=== PATIENT | male | born 1950 | race Caucasian/White ===

== ENCOUNTER 2016-09-22 11:00 | Day surgery (SDC) | payer BC, MEDICARE ==
[~2016-09-22 11:00] MED LIST: Buffered Lidocaine 1% SYRIN* 3 ML/SYR SYRINGE INTRADERM ONE
[2016-09-22] MEDS ORDERED: fentaNYL* 50 MCG/ML 2 ML VIAL (100 MCG VIAL) ONE (13:41)
[2016-09-22] MEDS ORDERED: ZOSYN 3.375 GM ONE TIME DOSE-OVER 30 MINUTES IVPB (14:00)
[2016-09-22] MEDS ORDERED: EPHEDrine (Pressors)* 50 MG/ML VIAL ONE (14:17)
[2016-09-22] MEDS ORDERED: Succinylcholine* 20 MG/ML 10 ML VIAL ONE (14:17)
[2016-09-22] MEDS ORDERED: Lidocaine 2% PF * 5 ML VIAL ONE (14:17)
[2016-09-22] MEDS ORDERED: Propofol* 10 MG/ML 20 ML BTL IV PUSH ONE (14:17)
[2016-09-22 15:24] VITALS: BP 126/72
--- NOTE | 2016-09-22 15:48 | RAD ---
INDICATION: Biliary stones. COMPARISON: Correlation is made with a prior MRCP study from July 28, 2016. TECHNIQUE: An ERCP exam was performed by Dr. Monet. Multiple spot films of the right upper quadrant were obtained. Approximately 131.6 seconds of intermittent fluoroscopic guidance was provided during the exam. FINDINGS: The films demonstrate cannulization of the common bile duct and passage of a balloon catheter over a guidewire into the common bile duct with several passes to remove biliary calculi. IMPRESSION: ERCP CONTROL FILMS. CPT II Codes: 6045F
--- NOTE | 2016-09-23 02:22 | PRO ---
DATE: 09/22/16 [facility] REFERRING PHYSICIAN: Drs. Ravi Moreno, Robbi Hastings, Rickey Dee.* PROCEDURE: ERCP with common bile duct cannulation and balloon extraction of pigment stones. 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 He had a laparoscopic common duct exploration at the time of his original cholecystectomy and then a sphincterotomy in 1993. In May 1994, he had removal of pigment stones via ERCP. Recent MRCP suggested common duct stones. His 1994 ERCP suggested a long cystic duct remnant. Original sphincterotomy had been done with needle knife assistance in 1993. At this time, he has been feeling well. His first grandchild was born today. ENDOSCOPIST: Dr. Monet. ANESTHESIOLOGIST: Dr. Springer. FINDINGS: He is a slender man, sallow complected, in no overt distress. He was positioned on the table with a warmer in place. Pressure points appeared to be there. He was intubated. ERCP: Esophagus - easily entered. Mucosa normal . Stomach - generally appears normal with some wispy bleeding points in the fundus seen during withdrawal. The antrum appears normal. There is a fair amount of foam. Duodenum - the bulb had some erythema and appearance of swelling at the apex of the bulb, but the lower duodenum was readily entered. Papilla - a slip identified in the typical location. A sphincterotome was inserted, entering the common duct readily and a wire was placed deep in the liver. Initial injection showed some stone material in the distal duct. The duct was estimated at 13 mm proximally. An exchange is made for an extraction balloon 9 mm to 12 mm. It was inflated in the upper duct and brought through. The initial passage brought out a lot of cakey black material with some small stones part of it. More granular dark debris was brought through with a couple of other passes. The balloon at 12 mm was snug, but came through with mild steady tension. A guidewire became displaced and the guidewire was then reinserted with the sphincterotome again. The balloon was then reinserted and brought through and this delivered a triangular 9 to 10 mm stone. Further ingestion showed no filling defects. Air got into the duct, but seemed to demonstrate adequate drainage and a final sweep was done extracting the air. IMPRESSION: 1. Status post remote sphincterotomy. 2. Common bile duct stones - removed and bile drainage appears to be adequate and free. 3. Episodes of cholangitis - his course will be followed. [id number] #: [id number] MTDD
== END 2016-09-22 15:45 | disposition home or self-care (01) ==
LOC: OR 11:00
PROVIDERS: ATTEND Internal Medicine Gastroenterology
DX: K80.36 Calculus of bile duct with acute and chronic cholangitis without obstruction (principal); Z94.0 Kidney transplant status; K76.89 Other specified diseases of liver
CPT/HCPCS: 74328; 76001; J0330; J2543; J2704; J3010

== ENCOUNTER 2016-09-29 06:21 | Emergency (ER) | payer BC, MEDICARE ==
[2016-09-29] MEDS ORDERED: NS 0.9% 1000 ML* 1,000 ML IV SCH (07:30)
[2016-09-29] MEDS ORDERED: NS 0.9% 1000 ML* 1,000 ML IV ONE (07:30)
[2016-09-29 07:39] LABS: Hematocrit 40 % (42-52); Hemoglobin 13.2 g/dl (14.0-18.0); Mean Corpuscular HGB Conc 33 g/dl (31-36); Mean Corpuscular Hemoglobin 31 pg (27-31); Mean Corpuscular Volume 93 fL (80-94); Mean Platelet Volume 9 um3 (7.4-10.4); Red Blood Count 4.23 10^6/ul (4.0-5.4); Red Cell Distribution Width 14 % (10.5-15); White Blood Count 8.7 10^3/ul (3.5-10.8)
[2016-09-29 07:52] LABS: Albumin 3.4 g/dL (3.2-5.2); C Reactive Protein 8.29 mg/L (< 5.00); EGFR African American 95.9 (>60); EGFR Non-African American 74.5 (>60); Globulin 2.6 g/dL (2-4); Potassium 3.7 mmol/L (3.5-5.0); Total Bilirubin 1.2 mg/dL (0.2-1.0)
[2016-09-29 08:34] LABS: Urine Bilirubin Negative (Negative); Urine Glucose Negative (Negative); Urine Nitrite Negative (Negative)
--- NOTE | 2016-09-29 10:17 | RAD ---
CLINICAL HISTORY: The right lower quadrant pain COMPARISON: March 29, 2008 TECHNIQUE: Multiple contiguous axial CT scans were obtained of the abdomen and pelvis, without intravenous contrast enhancement. Coronal and sagittal multiplanar reformations are submitted for review. Oral contrast was not administered. FINDINGS: The study is limited by the lack of intravenous contrast. This limits evaluation of the solid organs and vasculature. LUNG BASES: The lung bases are clear. LIVER: Again noted are numerous cysts throughout the liver parenchyma consistent with history of polycystic kidney disease. BILE DUCTS: There is no intrahepatic or extrahepatic biliary dilatation. GALLBLADDER: The gallbladder is not visualized. Surgical clips are noted in the gallbladder fossa. PANCREAS: The pancreas is normal, without mass or ductal dilatation. SPLEEN: Normal in size and appearance. UPPER GI TRACT: Evaluation of the gastrointestinal tract is limited by incomplete gastric distention. The upper GI tract is unremarkable. SMALL BOWEL AND MESENTERY: The small bowel is normal in contour, course, and caliber. There is no obstruction or dilatation. COLON: The colon is normal in contour, course, caliber. There is no pericolonic inflammatory change. There is a tubular, vermiform, hollow viscus that is blind ending, and originates from the cecum, consistent with a normal appendix. There is no periappendiceal inflammatory change. This is best seen on axial images 53 through 63. ADRENALS: Normal bilaterally. KIDNEYS: Again noted are multiple renal parenchymal cysts throughout both kidneys, including simple and complicated cysts. Direct comparison is limited due to the number cysts; however the appearance is similar to the 2008 examination. There is an allograft within the left hemipelvis. There is pelviectasis. There is no appreciable nephrolithiasis. BLADDER: The bladder is smooth in contour. PELVIC ORGANS: The prostate gland is normal. The seminal vesicles are symmetric. AORTA: There is calcific atherosclerotic disease of the abdominal aorta and its branches, without aneurysmal dilatation IVC: Unremarkable LYMPH NODES: There is no lymphadenopathy by size criteria. ABDOMINAL WALL: There is no evidence for abdominal wall hernia. BONES AND SOFT TISSUES: There is a scoliotic curvature of the spine. Degenerative changes are noted OTHER: None IMPRESSION: 1. AGAIN NOTED ARE INNUMERABLE RENAL PARENCHYMAL AND HEPATIC PARENCHYMAL CYSTS CONSISTENT WITH THE HISTORY OF POLYCYSTIC KIDNEY DISEASE. 2. THE PATIENT IS STATUS POST RENAL ALLOGRAFT IN THE LEFT HEMIPELVIS. 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 THERE IS NO APPRECIABLE NEPHROLITHIASIS. 3. ATHEROSCLEROSIS.
--- NOTE | 2016-09-29 11:08 | ED ---
Demarcus Pittman Auryana, scribed for Reji Gaytan MD on 09/29/16 at 0735 . Abdominal Pain/Male - HPI Summary HPI Summary: 65 year old male presents with lower abdominal pain starting yesterday around 16 :00. Since then, the pain has become progressively worse, and is now localized to the RLQ. He reports that the pain is intermittent (currently 3/10) but with movement and turning over, the pain is much worse - characterized as sharp/ burning. He also has decreased appetite (starting this morning) but denies any fever, chills, burning with urination, diarrhea, or any blood in stool. PMHx is significant for hernia, renal transplant s/p PKD, cholecystectomy, and ERCP ( last week). - History of Current Complaint Chief Complaint: EDAbdPain Stated Complaint: LRQ PAIN Time Seen by Provider: 09/29/16 07:30 Hx Obtained From: Patient Onset/Duration: Gradual Onset, Lasting Days - starting yesterday around 16:00, Still Present, Worse Since - progressively into this morning Timing: Intermittent Severity Initially: Mild Severity Currently: Mild Pain Intensity: 3 Pain Scale Used: 0-10 Numeric Location: Diffuse - started diffuse, Discrete At: RLQ - now localized Character: Sharp - with movement, Burning Aggravating Factor(s): Movement Associated Signs And Symptoms: Positive: Decreased Appetite. Negative: Fever, Blood in Stool, Urinary Symptoms, Diarrhea - Allergies/Home Medications Allergies/Adverse Reactions: Allergies Allergy/AdvReac Type Severity Reaction Status Date / Time No Known Allergies Allergy Verified 09/22/16 11:13 PMH/Surg Hx/FS Hx/Imm Hx Endocrine/Hematology History: Reports: Hx Anticoagulant Therapy - warfarin, stopped lovenox 08/05/12, Hx Anemia - MILD Denies: Hx Diabetes Cardiovascular History: Reports: Hx Deep Vein Thrombosis, Hx Hypertension - CONTROL WITH MEDS Denies: Hx Pacemaker/ICD Respiratory History: Denies: Hx Asthma, Hx Chronic Obstructive Pulmonary Disease (COPD) GI History: Reports: Hx Gastroesophageal Reflux Disease - rarely, Hx Jaundice, Other GI Disorders - polycystic kidney disease Denies: Hx Ulcer History: Reports: Hx Kidney Stones - in past - none now, Hx Renal Disease - polycystic kidney disease, kidney xplant 1992, sees Dr. Moreno, Other Problems/Disorders - had kidney transplant Denies: Hx Dialysis Musculoskeletal History: Reports: Hx Osteoporosis - OSTEOPENIA, Hx Scoliosis, Hx Tendonitis - 2009 - none recent Denies: Hx Rheumatoid Arthritis Sensory History: Reports: Hx Cataracts, Hx Contacts or Glasses - glasses, Hx Hearing Aid - bilateral ears Opthamlomology History: Reports: Hx Cataracts, Hx Contacts or Glasses - glasses Neurological History: Denies: Hx Headaches, Hx Peripheral Neuropathy Psychiatric History: Denies: Hx Anxiety, Hx Panic Disorder - Surgical History Surgery Procedure, Year, and Place: 1992 LEFT RENAL TRANSPLANT,. 1991 LAPAROSCOPIC CHOLECYSTECTOMY. 1990 & 1991 RIGHT AND LEFT INGUINAL HERNIA REPAIR. , 2014 ERCP X 4. 2001 BILATERAL CATARACT EXTRACTION WITH IOL IMPLANT,. 1968 ankle surgery for fx Hx Anesthesia Reactions: No Other Surgical History: ERCP - last week Infectious Disease History: No Infectious Disease History: Reports: Hx Shingles Denies: Hx Hepatitis, Hx Human Immunodeficiency Virus (HIV), Traveled Outside the [place] in Last 30 Days - Family History Known Family History: Positive: Renal Disease - PKD, Other - Cancer - Social History Occupation: Retired Lives: With Family Alcohol Use: Daily Alcohol Amount: WINE WITH DINNER Substance Use Type: Reports: None Hx Tobacco Use: No Smoking Status (MU): Former Smoker Amount Used/How Often: 3 years, 1ppd Length of Time of Smoking/Using Tobacco: 2-3 YEARS Review of Systems Constitutional: Negative Negative: Fever, Chills Eyes: Negative ENT: Negative Cardiovascular: Negative Respiratory: Negative Positive: Abdominal Pain - RLQ, Other - decreased appetite. Negative: Diarrhea Genitourinary: Negative Negative: burning Musculoskeletal: Negative Skin: Negative Neurological: Negative Psychological: Normal All Other Systems Reviewed And Are Negative: Yes Physical Exam Triage Information Reviewed: Yes Vital Signs On Initial Exam: Initial Vitals Temp Pulse Resp BP Pulse Ox 98.2 F 61 20 138/83 98 09/29/16 06:29 09/29/16 06:29 09/29/16 06:29 09/29/16 06:29 09/29/16 06:29 Vital Signs Reviewed: Yes Appearance: Positive: Well-Appearing, No Pain Distress Skin: Positive: Warm, Skin Color Reflects Adequate Perfusion, Dry Head/Face: Positive: Normal Head/Face Inspection Eyes: Positive: EOMI, JOHN ENT: Positive: Normal ENT inspection Neck: Positive: Supple, Nontender Respiratory/Lung Sounds: Positive: Clear to Auscultation, Breath Sounds Present Cardiovascular: Positive: RRR Abdomen Description: Positive: Soft, Other: - mild tenderness in the RLQ Bowel Sounds: Positive: Present - normal Musculoskeletal: Positive: Normal, Strength/ROM Intact Neurological: Positive: Normal, Sensory/Motor Intact, Alert, Oriented to Person Place, Time Psychiatric: Positive: Affect/Mood Appropriate - Gilliam Coma Scale Coma Scale Total: 15 Diagnostics - Vital Signs Vital Signs Temp Pulse Resp BP Pulse Ox 09/29/16 06:50 55 97 09/29/16 06:47 118/81 09/29/16 06:29 98.2 F 61 20 138/83 98 - Laboratory Lab Results: Lab Results 09/29/16 09/29/16 09/29/16 Range/Units 07:30 07:30 07:30 WBC 8.7 (3.5-10.8) 10^3/ul RBC 4.23 (4.0-5.4) 10^6/ul Hgb 13.2 L (14.0-18.0) g/dl Hct 40 L (42-52) % MCV 93 (80-94) fL MCH 31 (27-31) pg MCHC 33 (31-36) g/dl RDW 14 (10.5-15) % Plt Count 175 (150-450) 10^3/ul MPV 9 (7.4-10.4) um3 Neut % (Auto) 75.3 (38-83) % Lymph % (Auto) 10.6 L (25-47) % Wright % (Auto) 11.1 H (1-9) % Eos % (Auto) 2.4 (0-6) % Baso % (Auto) 0.6 (0-2) % Absolute Neuts (auto) 6.5 (1.5-7.7) 10^3/ul Absolute Lymphs (auto) 0.9 L (1.0-4.8) 10^3/ul Absolute Monos (auto) 1.0 H (0-0.8) 10^3/ul Absolute Eos (auto) 0.2 (0-0.6) 10^3/ul Absolute Basos (auto) 0.1 (0-0.2) 10^3/ul Absolute Nucleated RBC 0.01 10^3/ul Nucleated RBC % 0.1 INR (Anticoag Therapy) 0.92 (0.89-1.11) APTT 30.7 (26.0-36.3) seconds Sodium 139 (133-145) mmol/L Potassium 3.7 (3.5-5.0) mmol/L Chloride 108 (101-111) mmol/L Carbon Dioxide 24 (22-32) mmol/L Anion Gap 7 (2-11) mmol/L BUN 20 (6-24) mg/dL Creatinine 1.00 (0.67-1.17) mg/dL Est GFR ( Amer) 95.9 (>60) Est GFR (Non-Af Amer) 74.5 (>60) BUN/Creatinine Ratio 20.0 (8-20) Glucose 98 (70-100) mg/dL Lactic Acid (0.5-2.0) mmol/L Calcium 9.0 (8.6-10.3) mg/dL Total Bilirubin 1.20 H (0.2-1.0) mg/dL AST 18 (13-39) U/L ALT 18 (7-52) U/L Alkaline Phosphatase 139 H (34-104) U/L C-Reactive Protein 8.29 H (< 5.00) mg/L Total Protein 6.0 L (6.4-8.9) g/dL Albumin 3.4 (3.2-5.2) g/dL Globulin 2.6 (2-4) g/dL Albumin/Globulin Ratio 1.3 (1-3) Lipase 16 (11.0-82.0) U/L Urine Color Urine Appearance Urine pH (5-9) Ur Specific [place] (1.010-1.030) Urine Protein (Negative) Urine Ketones (Negative) Urine Blood (Negative) Urine Nitrate (Negative) Urine Bilirubin (Negative) Urine Urobilinogen (Negative) Ur Leukocyte Esterase (Negative) Urine Glucose (Negative) Urine Ascorbic Acid (Negative) 09/29/16 09/29/16 Range/Units 07:30 08:15 WBC (3.5-10.8) 10^3/ul RBC (4.0-5.4) 10^6/ul Hgb (14.0-18.0) g/dl Hct (42-52) % MCV (80-94) fL MCH (27-31) pg MCHC (31-36) g/dl RDW (10.5-15) % Plt Count (150-450) 10^3/ul MPV (7.4-10.4) um3 Neut % (Auto) (38-83) % Lymph % (Auto) (25-47) % Wright % (Auto) (1-9) % Eos % (Auto) (0-6) % Baso % (Auto) (0-2) % Absolute Neuts (auto) (1.5-7.7) 10^3/ul Absolute Lymphs (auto) (1.0-4.8) 10^3/ul Absolute Monos (auto) (0-0.8) 10^3/ul Absolute Eos (auto) (0-0.6) 10^3/ul Absolute Basos (auto) (0-0.2) 10^3/ul Absolute Nucleated RBC 10^3/ul Nucleated RBC % INR (Anticoag Therapy) (0.89-1.11) APTT (26.0-36.3) seconds Sodium (133-145) mmol/L Potassium (3.5-5.0) mmol/L Chloride (101-111) mmol/L Carbon Dioxide (22-32) mmol/L Anion Gap (2-11) mmol/L BUN (6-24) mg/dL Creatinine (0.67-1.17) mg/dL Est GFR ( Amer) (>60) Est GFR (Non-Af Amer) (>60) BUN/Creatinine Ratio (8-20) Glucose (70-100) mg/dL Lactic Acid 1.1 (0.5-2.0) mmol/L Calcium (8.6-10.3) mg/dL Total Bilirubin (0.2-1.0) mg/dL AST (13-39) U/L ALT (7-52) U/L Alkaline Phosphatase (34-104) U/L C-Reactive Protein (< 5.00) mg/L Total Protein (6.4-8.9) g/dL Albumin (3.2-5.2) g/dL Globulin (2-4) g/dL Albumin/Globulin Ratio (1-3) Lipase (11.0-82.0) U/L Urine Color Yellow Urine Appearance Clear Urine pH 5.0 (5-9) Ur Specific [place] 1.019 (1.010-1.030) Urine Protein Negative (Negative) Urine Ketones Negative (Negative) Urine Blood Negative (Negative) Urine Nitrate Negative (Negative) Urine Bilirubin Negative (Negative) Urine Urobilinogen Negative (Negative) Ur Leukocyte Esterase Negative (Negative) Urine Glucose Negative (Negative) Urine Ascorbic Acid * H (Negative) Result Diagrams: 09/29/16 07:30 09/29/16 07:30 Lab Statement: Any lab studies that have been ordered have been reviewed, and results considered in the medical decision making process. - CT ABD/PEL CT Interpretation: Positive (See Comments) - IMPRESSION: 1. AGAIN NOTED ARE INNUMERABLE RENAL PARENCHYMAL AND HEPATIC PARENCHYMAL CYSTS CONSISTENT WITH THE HISTORY OF POLYCYSTIC KIDNEY DISEASE. 2. THE PATIENT IS STATUS POST RENAL ALLOGRAFT IN THE LEFT HEMIPELVIS. 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 THERE IS NO APPRECIABLE NEPHROLITHIASIS. 3. ATHER[address]OSIS. CT Interpretation Completed By: Radiologist Re-Evaluation - Re-Evaluation First Eval Re-Evaluation Time: 10:35 - dicussed imaging and labs Abdominal Pain Fem Course/Dx - Course Course Of Treatment: NO CRITICAL CARE TIME Assessment/Plan: PAIN DECREASED IN ED. TOLERATED PO. DISCUSSED RESULTS WITH PATIENT. DENIES TESTICULAR PAIN. DISCHARGE HOME STABLE. F/U WITH PMD, RETURN TO ED IF WORSE OR QUESTIONS/CONCERNS. - Diagnoses Provider Diagnoses: Abdominal pain Discharge - Discharge Plan Condition: Stable Disposition: HOME Patient Education Materials: Acute Abdominal Pain (ED) Referrals: Rickey Dee MD [Primary Care Provider] - Additional Instructions: FOLLOW UP WITH YOUR DOCTOR. RETURN TO THE EMERGENCY DEPARTMENT FOR ANY WORSENING OF YOUR CONDITION; PAIN, FEVER, VOMITING, YOU FEEL ILL OR QUESTIONS OR CONCERNS. The documentation as recorded by the Demarcus ashley Auryana accurately reflects the service I personally performed and the decisions made by me, Reji Gaytan MD.
[2016-09-29 11:20] VITALS: BP 124/75
== END 2016-09-29 11:21 | disposition home or self-care (01) ==
LOC: ED 06:21
DX: R10.31 Right lower quadrant pain (principal); Z87.891 Personal history of nicotine dependence
CPT/HCPCS: 36415; 74176; 80053; 81003; 83605; 83690; 85025; 85610; 85730; 86140; 99282

== ENCOUNTER 2018-09-20 09:39 | Emergency (ER) | payer BC ==
[2018-09-20] MEDS ORDERED: Dexamethasone IV* 4 MG/ML 1 ML (4 MG) IV SLOW PU ONE (10:40)
[2018-09-20] MEDS ORDERED: NS 0.9% 1000 ML** 1,000 ML IV ONE (10:40)
[2018-09-20] MEDS ORDERED: cefTRIAXone(*) 1 GM in NS 0.9% 50 ML* 50 ML IVPB ONE (10:40)
--- NOTE | 2018-09-20 10:45 | ED ---
Throat Pain/Nasal Congestion - HPI Summary HPI Summary: This patient is a 67 year old M presenting to ED with a chief complaint of sore throat since last week. The CC has been worsening in the past week. Sensation of soreness is present at the left side of the throat, and feeling like an extra flap in the throat. He feels as though his epiglottis has partially blocked the airway. The patient rates the pain 2/10 in severity. Patient admits to painful swallowing but denies fever. He has always had "modest post- nasal drip" and acid reflux and this is no different. Patient saw his PA yesterday who thought it was a viral infection but did not perform any tests. PMHx anemia, DVT, HTN, GERD, renal calculi, osteoporosis, scoliosos, tendonitis , but no history of asthma and COPD. PSHx: left renal transplant, laparoscopic cholecystectomy, hernia repair. FHx of renal disease and cancer. Patient is a former smoker, drinks wine daily, but does not use drugs. Patient is currently taking immunosuppressive medication. - History of Current Complaint Chief Complaint: EDThroatPain Time Seen by Provider: 09/20/18 10:28 Hx Obtained From: Patient Onset/Duration: Lasting Weeks - 1 week, Still Present, Worse Since Severity: Mild - 2/10 Associated Signs And Symptoms: Positive: Dysphagia - Painful Cough: None Related History: Smoking - Former smoker - Allergies/Home Medications Allergies/Adverse Reactions: Allergies Allergy/AdvReac Type Severity Reaction Status Date / Time No Known Allergies Allergy Verified 09/20/18 09:42 PMH/Surg Hx/FS Hx/Imm Hx Endocrine/Hematology History: Reports: Hx Anticoagulant Therapy - warfarin, stopped lovenox 08/05/12, Hx Anemia - MILD Denies: Hx Diabetes Cardiovascular History: Reports: Hx Deep Vein Thrombosis, Hx Hypertension - CONTROL WITH MEDS Denies: Hx Pacemaker/ICD Respiratory History: Denies: Hx Asthma, Hx Chronic Obstructive Pulmonary Disease (COPD) GI History: Reports: Hx Gastroesophageal Reflux Disease - rarely, Hx Jaundice, Other GI Disorders - polycystic kidney disease Denies: Hx Ulcer History: Reports: Hx Kidney Stones - in past - none now, Hx Renal Disease - polycystic kidney disease, kidney xplant 1992, sees Dr. Moreno, Other Problems/Disorders - had kidney transplant Denies: Hx Dialysis Musculoskeletal History: Reports: Hx Osteoporosis - OSTEOPENIA, Hx Scoliosis, Hx Tendonitis - 2009 - none recent Denies: Hx Rheumatoid Arthritis Sensory History: Reports: Hx Cataracts, Hx Contacts or Glasses - glasses, Hx Hearing Aid - bilateral ears Opthamlomology History: Reports: Hx Cataracts, Hx Contacts or Glasses - glasses Neurological History: Denies: Hx Headaches, Hx Peripheral Neuropathy Psychiatric History: Denies: Hx Anxiety, Hx Panic Disorder - Surgical History Surgery Procedure, Year, and Place: 1992 LEFT RENAL TRANSPLANT,. 1991 LAPAROSCOPIC CHOLECYSTECTOMY. 1990 & 1991 RIGHT AND LEFT INGUINAL HERNIA REPAIR. , 2014 ERCP X 4. 2001 BILATERAL CATARACT EXTRACTION WITH IOL IMPLANT,. 1968 ankle surgery for fx Hx Anesthesia Reactions: No Infectious Disease History: No Infectious Disease History: Reports: Hx Shingles Denies: Hx Hepatitis, Hx Human Immunodeficiency Virus (HIV), Traveled Outside the [place] in Last 30 Days - Family History Known Family History: Positive: Renal Disease - PKD, Other - Cancer - Social History Alcohol Use: Daily Alcohol Amount: WINE WITH DINNER Substance Use Type: Reports: None Hx Tobacco Use: Yes Smoking Status (MU): Former Smoker Amount Used/How Often: 3 years, 1ppd Length of Time of Smoking/Using Tobacco: 2-3 YEARS Review of Systems Negative: Fever ENT: Other - Painful swallowing Positive: Sore Throat - Sensation of blockage on left side Positive: Shortness Of Breath All Other Systems Reviewed And Are Negative: Yes Physical Exam - Summary Physical Exam Summary: VITAL SIGNS: Reviewed. GENERAL: Patient is a well-developed and nourished male who is lying comfortable in the stretcher. Patient is not in any acute respiratory distress. HEAD AND FACE: No signs of trauma. No ecchymosis, hematomas or skull depressions. No sinus tenderness. EYES: PERRLA, EOMI x 2, No injected conjunctiva, no nystagmus. EARS: Hearing grossly intact. Ear canals and tympanic membranes are within normal limits. MOUTH: Airway is patent, not obstructive. NECK: Supple, trachea is midline, no adenopathy, no JVD, no carotid bruit, no c- spine tenderness, neck with full ROM. CHEST: Symmetric, no tenderness at palpation LUNGS: Clear to auscultation bilaterally. No wheezing or crackles. CVS: Regular rate and rhythm, S1 and S2 present, no murmurs or gallops appreciated. ABDOMEN: Soft, non-tender. No signs of distention. No rebound no guarding, and no masses palpated. Bowel sounds are normal. EXTREMITIES: FROM in all major joints, no edema, no cyanosis or clubbing. NEURO: Alert and oriented x 3. No acute neurological deficits. Speech is normal and follows commands. SKIN: Dry and warm Triage Information Reviewed: Yes Vital Signs On Initial Exam: Initial Vitals Temp Pulse Resp BP Pulse Ox 98.7 F 61 15 134/86 97 09/20/18 09:41 09/20/18 09:41 09/20/18 09:41 09/20/18 09:41 09/20/18 09:41 Vital Signs Reviewed: Yes Diagnostics - Vital Signs Vital Signs Temp Pulse Resp BP Pulse Ox 09/20/18 10:18 58 123/83 96 09/20/18 10:13 58 95 09/20/18 09:48 60 130/77 95 09/20/18 09:41 98.7 F 61 15 134/86 97 - Laboratory Result Diagrams: 09/20/18 10:55 09/20/18 10:55 Lab Statement: Any lab studies that have been ordered have been reviewed, and results considered in the medical decision making process. - CT Neck CT Interpretation Completed By: Radiologist Summary of CT Findings: 1. ENLARGEMENT OF THE LEFT PALATINE TONSIL WITH CENTRAL HYPOENHANCEMENT MEASURING UP TO 0.7 CM IN DIAMETER SUGGESTIVE OF A TONSILLAR ABSCESS. 2. 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 THIS MAY INDICATE THAT THE LEFT TONSILLAR ABSCESS IS A COMPLICATION OF A OROPHARYNGEAL MUCOSAL NEOPLASM. 3. LOW-ATTENUATION LESION OF THE LEFT SUBMANDIBULAR GLAND SUGGESTIVE OF A MUCOCELE. Dr. Chen has reviewed this radiology report. Re-Evaluation - Re-Evaluation First Eval Re-Evaluation Time: 13:06 Comment: Results were discussed with patient. Patient will be discharged with instructions to follow up with ENT and PCP. Patient understands and agrees with this plan. EENT Course/Dx - Course Assessment/Plan: This patient is a 67-year-old male who presents to the emergency department with a chief complaint of having sore throat. The patient has seen his primary care physician where he was told that the patient has a viral infection. The symptoms are worsening therefore he decided to come to the ED for further workup and management. Blood test results shows a wbcs of 9.7, hemoglobin 13.6, hematocrit of 40 and platelets 170. Creatinine is 1.29, glucose 104, CRP is 32. Urinalysis is negative and rapid strep is negative. CT of the sulfa tissue of the neck impression: Enlargement of the left collecting tonsils with central hypoenhancement measuring up to 0.7 cm in diameter suggestive of a tonsillar abscess. Findings consistent with left vocal cord paralysis. This may indicate and left tonsillar abscess is complication of oropharyngeal mucosal neoplasm. Low-attenuation lesions in the left submandibular gland is suggested of mucocele. In the ED course the patient was given IV fluids, the patient is given Decadron and Rocephin. I discussed the case with Dr. Dong from ENT and he recommends for the patient to be placed on Augmentin and that he will see the patient on 09/22. I discussed the findings test results and plan with the patient and he agrees. He was also recommended to return to the emergency department if he develops any worsening of symptoms. The patient understands and agrees. - Diagnoses Provider Diagnoses: Peritonsillar abscess, Peritonsillar cellulitis - Provider Notifications Discussed Care Of Patient With: Titi Dong Time Discussed With Above Provider: 12:50 Instructed by Provider To: Other - Recommended Augmentin, Dr. Dong will see patient on 09/22/2018 Discharge - Sign-Out/Discharge Documenting (check all that apply): Patient Departure - Discharge Patient Received Moderate/Deep Sedation with Procedure: No - Discharge Plan Condition: Stable Disposition: HOME Prescriptions: Amoxicillin/Clavulanate TAB* [Augmentin TAB 875*] 875 mg PO BID #20 tab oxyCODONE/Acetamin 5/325 MG* [Percocet 5/325 TAB*] 1 tab PO Q6H PRN #10 tab MDD 4 PRN Reason: Pain Patient Education Materials: Cellulitis (ED), Peritonsillar Abscess (ED) Referrals: Rickey Dee MD [Primary Care Provider] - 3 Days Titi Dong MD [Medical Doctor] - 2 Days Additional Instructions: Follow with your primary care provider in [address] Dong (ENT) in 2 days. RETURN TO THE ER FOR WORSENING OR CHANGING SYMPTOMS. - Billing Disposition and Condition Condition: STABLE Disposition: Home - Attestation Statements Document Initiated by Scribe: Yes Documenting Scribe: Clinton Hawley Provider For Whom Delmi is Documenting (Include Credential): Pipe Chen MD Scribe Attestation: I, Clinton Soria and Sukhjinder Hawley, scribed for Pipe Chen MD on 09/20/18 at 2153. Scribe Documentation Reviewed: Yes Provider Attestation: The documentation as recorded by the scribe, Clinton Soria and Sukhjinder Hawley accurately reflects the service I personally performed and the decisions made by me, Pipe Chen MD Status of Scribe Document: Viewed
[2018-09-20 11:04] LABS: ABS Basophils 0 10^3/ul (0-0.2); ABS Eosinophils 0.1 10^3/ul (0-0.6); ABS Lymphocytes 0.6 10^3/ul (1.0-4.8); ABS Monocytes 0.9 10^3/ul (0-0.8); ABS Neutrophils 8.1 10^3/ul (1.5-7.7); ABS Nucleated RBC 0 10^3/ul; Hematocrit 40 % (36-46); Hemoglobin 13.6 g/dL (14.0-18.0); Lymphocyte % 5.7 %; Mean Corpuscular HGB Conc 34 g/dL (31-36); Mean Corpuscular Hemoglobin 33 pg (27-31); Mean Corpuscular Volume 96 fL (80-94); Mean Platelet Volume 8.9 fL (7.4-10.4); Nucleated Red Blood Cells % 0; Platelet Count 170 10^3/uL (150-450); Red Blood Count 4.14 10^6 /uL (4.18-5.48); Red Cell Distribution Width 13 % (10.5-15); White Blood Count 9.7 10^3/uL (3.5-10.8)
[2018-09-20 11:22] LABS: Albumin 3.8 g/dL (3.2-5.2); Albumin/Globulin Ratio 1.4 (1-3); BUN/Creatinine Ratio 14.7 (8-20); C Reactive Protein 32.05 mg/L (<8.01); Calcium 9.6 mg/dL (8.6-10.3); EGFR African American 66.8 (>60); EGFR Non-African American 55.2 (>60); Globulin 2.8 g/dL (2-4); Total Bilirubin 1.8 mg/dL (0.2-1.0); Total Protein 6.6 g/dL (6.4-8.9)
[2018-09-20] MEDS ORDERED: Iodixanol* (CONTRAST) 320 MG/ML 100 ML SDV IV ONE (11:36)
[2018-09-20 12:04] LABS: Rapid Strep Molecular Negative (Negative)
[2018-09-20 12:06] LABS: Urine Appearance Clear; Urine Bilirubin Negative (Negative); Urine Blood Negative (Negative); Urine Color Yellow; Urine Glucose Negative (Negative); Urine Ketones Negative (Negative); Urine Nitrite Negative (Negative); Urine Protein Negative (Negative); Urine Specific Gravity 1.016 (1.010-1.030); Urine Urobilinogen Negative (Negative)
[2018-09-20 13:14] VITALS: BP 123/57
== END 2018-09-20 13:13 | disposition home or self-care (01) ==
LOC: ED 09:39
DX: J36 Peritonsillar abscess (principal); R13.10 Dysphagia, unspecified; Z87.891 Personal history of nicotine dependence; Z79.01 Long term (current) use of anticoagulants; Z86.718 Personal history of other venous thrombosis and embolism; I10 Essential (primary) hypertension; K21.9 Gastro-esophageal reflux disease without esophagitis; Z87.442 Personal history of urinary calculi
CPT/HCPCS: 36415; 70491; 80053; 81003; 83605; 85025; 86140; 87040; 87070; 87651; 96365; 96375; 99283; J0696; J1100; Q9967

== ENCOUNTER 2020-09-12 08:57 | Observation (INO) ==
[~2020-09-12 08:57] MED LIST changes: +Buffered Lidocaine 1% SYRIN 1 ml INTRADERM ONE; -Buffered Lidocaine 1% SYRIN* 3 ML/SYR SYRINGE INTRADERM ONE; +Glycopyrrolate IV 0.2 MG/ML 1 ML VIAL ONE; +Lactated Ringers 1000 ml BAG 1,000 ML IV SCH; +Lidocaine 2% PF 5 ML VIAL ONE; +Naloxone 0.4 mg VIAL 0.4 mg/ml 1 ml VIAL IV PRN; +Ondansetron 4 mg VIAL 2 MG/ML 2 ml VIAL IV PRN; +Propofol 10 MG/ML 20 ML BTL ONE; +diPHENhydraMINE IV 50 MG/ML 1 ml VIAL (BENADRYL) IV PRN; +fentaNYL 100 mcg/2 ml 50 MCG/ML VIAL ONE
[2020-09-12] MEDS ORDERED: ceFAZolin 2 GM in NS PREMIX 2 GM/100 ML BAG IVPB ONE (10:16)
[2020-09-12] MEDS ORDERED: EPHEDrine (Pressors) 50 MG/ML VIAL ONE (12:08)
[2020-09-12] MEDS ORDERED: Propofol 10 MG/ML 20 ML BTL ONE (13:04)
[2020-09-12] MEDS ORDERED: Phenylephrine IV 10 MG/ML 1 ml VIAL ONE (13:28)
[2020-09-12] MEDS ORDERED: fentaNYL 100 mcg/2 ml 50 MCG/ML VIAL ONE (13:52)
[2020-09-12] MEDS ORDERED: Hydrocortisone INJ 100 MG/2ML 2 ML VIAL ONE (14:01)
[2020-09-12] MEDS ORDERED: diPHENhydraMINE IV 50 MG/ML 1 ml VIAL (BENADRYL) IV PRN (14:28)
[2020-09-12] MEDS ORDERED: Magnesium Hydroxide LIQ 30 ML UDC PO PRN (14:28)
[2020-09-12] MEDS ORDERED: diPHENhydraMINE 25 mg TAB PO PRN (14:28)
[2020-09-12] MEDS ORDERED: Lactulose 30 ml UDC PO PRN (14:28)
[2020-09-12] MEDS ORDERED: Morphine 2 MG/ML SYRINGE IV PRN (14:28)
[2020-09-12] MEDS ORDERED: Ondansetron 4 mg VIAL 2 MG/ML 2 ml VIAL IV PRN (14:28)
[2020-09-12] MEDS ORDERED: HYDROmorphone 1 MG/1 ML SYRINGE ONE (15:20)
[2020-09-12] MEDS: HYDROmorphone 1 MG/1 ML SYRINGE IV PRN ×2 (15:21→15:50)
[2020-09-12] MEDS: Lactated Ringers 1000 ml BAG 1,000 ML IV SCH (16:12)
[2020-09-12] MEDS ORDERED: CYCLOSPORINE 25 MG PO SCH (20:00)
[2020-09-12] MEDS: ceFAZolin 1 GM ADVAN 1 GM in NS 0.9% 50 ML 50 ML IVPB SCH (20:30)
[2020-09-12] MEDS: Magnesium Hydroxide LIQ 30 ML UDC PO SCH (20:58)
[2020-09-12] MEDS: Ondansetron ODT 4 mg TAB 4 MG TAB PO PRN (22:47)
[2020-09-13] MEDS: Lactated Ringers 1000 ml BAG 1,000 ML IV SCH (02:25)
[2020-09-13] MEDS: ceFAZolin 1 GM ADVAN 1 GM in NS 0.9% 50 ML 50 ML IVPB SCH ×2 (05:14→12:24)
[2020-09-13 05:16] LABS: Hematocrit 32 % (42-52); Hemoglobin 10.9 g/dL (14.0-18.0); Mean Platelet Volume 8.6 fL (7.4-10.4); Platelet Count 146 10^3/uL (150-450)
[2020-09-13 05:35] LABS: Calcium 8.1 mg/dL (8.6-10.3); EGFR African American 83.3 (>60); EGFR Non-African American 68.9 (>60); Potassium 3.9 mmol/L (3.5-5.0)
[2020-09-13] MEDS: Magnesium Hydroxide LIQ 30 ML UDC PO SCH (08:49)
[2020-09-13] MEDS ORDERED: CYCLOSPORINE 25 MG PO SCH (09:00)
[2020-09-13] MEDS ORDERED: CMC:Pravastatin 20 mg TAB (NF) PO SCH (09:00)
[2020-09-13] MEDS ORDERED: Sulfamethox/Trimethoprim DS TAB 800/160 mg PO SCH (09:00)
[2020-09-13] MEDS ORDERED: Vitamin THERAPEUTIC TAB PO SCH (09:00)
[2020-09-13 12:08] VITALS: BP 98/55
[2020-09-13] MEDS: Ondansetron ODT 4 mg TAB 4 MG TAB PO PRN (15:09)
== END 2020-09-13 15:22 | disposition home or self-care (01) ==
LOC: EDSEX → OR 08:57 → SSU 08:57 → MERGE 11:00
PROVIDERS: ADMIT Orthopaedic Surgery Adult Reconstructive Orthopaedic Surgery; ATTEND Orthopaedic Surgery Adult Reconstructive Orthopaedic Surgery